=== PATIENT | female | born 1975 | race Caucasian/White ===

== ENCOUNTER 2016-09-22 18:07 | Emergency (ER) | payer SELFPAY ==
[~2016-09-22] VITALS: Ht 167.6 cm; Wt 68.0 kg
[~2016-09-22 18:07] MED LIST: CLIN150 PO; GABA300C3 PO; HYDR-3533 PO; OXYC5 PO; TIZA4 PO
[2016-09-22 18:10] VITALS: BP 149/89; PULSE 80; RESP 14; TEMP 98.2; O2SAT 100
[2016-09-22] MEDS ORDERED: SODIUM CHLOR 0.9% 1000 ML INJ 1,000 ML IV ONE (23:15)
[2016-09-22 23:48] LABS: AUTOMATED NEUTROPHIL # 3.7 TH/MM3 (1.8-7.7); BASOPHIL # 0.1 TH/MM3 (0-0.2); BASOPHIL % 0.8 % (0.0-2.0); EOSINOPHIL # 0.2 TH/MM3 (0-0.4); EOSINOPHIL % 3.3 % (0.0-4.0); HEMATOCRIT 43.1 % (35.0-46.0); HEMO FLAGS DIFF FINAL; LYMPH % 35.8 % (9.0-44.0); LYMPHOCYTE # 2.5 TH/MM3 (1.0-4.8); MEAN CELL VOLUME 90.4 FL (80.0-100.0); MEAN CORPUSCULAR HEMOGLOBIN 31.2 PG (27.0-34.0); MEAN CORPUSCULAR HGB CONC 34.5 % (32.0-36.0); MONO % 7.2 % (0.0-8.0); NEUT % 52.9 % (16.0-70.0); PLATELET COUNT 196 TH/MM3 (150-450); RED BLOOD COUNT 4.77 MIL/MM3 (4.00-5.30); RED CELL DISTRIBUTION WIDTH 12.9 % (11.6-17.2); WHITE BLOOD COUNT 7.1 TH/MM3 (4.0-11.0)
[2016-09-23] MEDS ORDERED: ONDANSETRON HCL 4 MG/2 ML VIAL IV PUSH ONE
[2016-09-23] MEDS ORDERED: SODIUM CHLOR 0.9% 1000 ML INJ 1,000 ML IV ONE
--- NOTE | 2016-09-23 | PD ---
HPI Chief Complaint: Postal Service Clerk Problem/Complaint Time Seen by Provider: 23:10 Travel History International Travel<30 days: No Contact w/Intl Traveler<30days: No Traveled to known affect area: No History of Present Illness HPI The patient is 40 year old female who presents to the [facility] emergency department with a history of pelvic pain in the left lower quadrant of the abdomen that she reports began 4 days ago and has been associated with vaginal bleeding. She reports that the vaginal bleeding began after her usual menstrual cycle ended 3 days prior. The patient reports that she does have a history of irregular menstrual cycles. She also reports having a history of a right ovarian cyst status post resection and endometriosis. She reports that she's had chronic pelvic pain followed by Dr. Saha. She reports that she has not done well in the past on Depo-Provera or oral contraceptives. The patient denies having any fevers or chills. She reports that last night she began to have nausea and vomiting with the pain. She reports that she has not been able to keep anything down today. She denies having any diarrhea. She denies having any new sexual partners or any concerns about sexually transmitted infections. She denies having any other vaginal discharge. The patient denies having any recent fevers, cough, congestion, neck pain, chest pain, shortness of breath, diarrhea, urinary symptoms, or neurologic symptoms. LMP: A week ago PFS Past Medical History Narrative Medical The patient's past medical history is significant for ovarian cyst, endometriosis, anxiety disorder Diminished Hearing: No Reproductive: Yes (ENDOMETRIOSIS) ?: Not : 0 Ovarian Cysts: Yes Past Surgical History Narrative Surgical The patient's past surgical history is significant for 3 prior laparoscopies, right ovarian cyst resection, benign lump removal from the right breast. Gynecologic Surgery: Yes (RIGHT OVARY REMOVED, RIGHT BREAST BENIGN LUMPECTOMY) Social History Alcohol Use: No Tobacco Use: Yes (2 PPD) Substance Use: No Allergies-Medications (Allergen,Severity, Reaction): Coded Allergies: Penicillin (Verified Allergy, Unknown, SWELLING, 09/22/16) Ibuprofen (Verified Adverse Reaction, Unknown, RASH, 09/22/16) Reported Meds & Prescriptions Reported Meds & Active Scripts Active Tramadol (Tramadol HCl) 50 Mg Tab 50 Mg PO Q8H PRN Zofran Odt (Ondansetron Odt) 4 Mg Tab 4 Mg SL Q6HR PRN Lortab 5 mg/325 mg (Hydrocodone/Acetaminophen 5 mg/325 mg) 1 Tab 1 Tab PO Q8HR PRN Cleocin (Clindamycin HCl) 150 Mg Cap 1 Tab PO QID Oxycodone (Oxycodone HCl) 5 Mg Cap 5 Mg PO Q8H PRN Reported Gabapentin 300 Mg Cap 300 Mg PO TID Zanaflex 4 mg (Tizanidine HCl) 4 Mg Tab 1 Tab PO HS Narrative Medication Klonopin when necessary anxiety Review of Systems Except as stated in HPI: all other systems reviewed are Neg General / Constitutional: No: Fever Eyes: No: Visual changes HENT: No: Headaches Cardiovascular: No: Chest Pain or Discomfort Respiratory: No: Shortness of Breath Gastrointestinal: Positive: Nausea, Vomiting, Abdominal Pain, No: Constipation , Changes in Bowel Habits, Indigestion, Loss of Appetite Genitourinary: No: Dysuria Musculoskeletal: No: Pain Skin: No Rash Neurologic: No: Weakness Psychiatric: No: Depression Endocrine: No: Polydipsia Hematologic/Lymphatic: No: Easy Bruising Physical Exam Narrative General: The patient is a well-developed well-nourished female in no acute distress. Head and Neck exam: Head is normocephalic atraumatic. Eyes: Pupils are equal round and reactive to light. Nose: Midline septum with pink mucous membranes Mouth: Dentition unremarkable. Moist mucus membranes. Posterior oropharynx is not erythematous. No tonsillar hypertrophy. Uvula midline. Airway patent. Neck: No palpable lymphadenopathy. No nuchal rigidity. No thyromegaly. Cardiovascular: Regular rate and rhythm without murmurs, gallops, or rubs. Lungs: Clear to auscultation bilaterally. No wheezes, rhonchi, or rales. Abdomen: Soft, with reported discomfort on palpation in the left lower quadrant of the abdomen and pelvis, no other tenderness on palpation of the other 3 quadrants of the abdomen. No guarding, rebound, or rigidity. Negative [place] sign. No tenderness on palpation of McBurney's point. Normal bowel sounds are audible. Extremities: No clubbing, cyanosis, or edema. 2+ pulses in all 4 extremities. Back: No spinous process tenderness to palpation. No costovertebral angle tenderness to palpation. Neurologic Exam: Grossly nonfocal. Skin Exam: No rash noted. Intact skin that is warm and dry. Gynecologic exam: The patient was placed in the dorsal lithotomy position. Her external genitalia were examined. She had no evidence of rash or lesions. The speculum was placed into her vagina and the cervix was identified. She has a mild amount of blood coming from the cervical os into the posterior vaginal vault. No other discharge noted. No cervical friability. On Bimanual exam: she has no cervical motion tenderness. No adnexal tenderness or prominence noted on palpation. No uterine tenderness or enlargement noted on palpation. Data Data Last Documented VS Vital Signs Date Time Temp Pulse Resp B/P Pulse Ox O2 Delivery O2 Flow Rate FiO2 09/22/16 18:10 98.2 80 14 149/89 100 Room Air Orders Complete Blood Count With Diff (09/22/16 23:13) Comprehensive Metabolic Panel (09/22/16 23:13) Gc And Chlamydia Pcr (09/22/16 23:13) Wet Prep Profile (09/22/16 23:13) Urinalysis - C+S If Indicated (09/22/16 23:13) Iv Access Insert/Monitor (09/22/16 23:13) Ecg Monitoring (09/22/16 23:13) Ed Urine Pregnancytest Poc (09/22/16 23:13) Sodium Chlor 0.9% 1000 Ml Inj (Ns 1000 M (09/22/16 23:15) Sodium Chlor 0.9% 1000 Ml Inj (Ns 1000 M (09/23/16 00:00) Morphine Inj (Morphine Inj) (09/23/16 00:00) Ondansetron Inj (Zofran Inj) (09/23/16 00:00) Us Pelvis Comp W Dop Transvag (09/22/16 23:53) Ondansetron Inj (Zofran Inj) (09/23/16 01:45) Morphine Inj (Morphine Inj) (09/23/16 01:45) Labs Laboratory Tests Test 09/22/16 09/22/16 09/23/16 01:15 23:40 01:05 Clue Cells (Wet Prep) NONE SEEN Vaginal Trichomonas (Wet Prep) NONE SEEN Vaginal Yeast (Wet Prep) NONE SEEN White Blood Count 7.1 TH/MM3 Red Blood Count 4.77 MIL/MM3 Hemoglobin 14.9 GM/DL Hematocrit 43.1 % Mean Corpuscular Volume 90.4 FL Mean Corpuscular Hemoglobin 31.2 PG Mean Corpuscular Hemoglobin 34.5 % Concent Red Cell Distribution Width 12.9 % Platelet Count 196 TH/MM3 Mean Platelet Volume 7.9 FL Neutrophils (%) (Auto) 52.9 % Lymphocytes (%) (Auto) 35.8 % Monocytes (%) (Auto) 7.2 % Eosinophils (%) (Auto) 3.3 % Basophils (%) (Auto) 0.8 % Neutrophils # (Auto) 3.7 TH/MM3 Lymphocytes # (Auto) 2.5 TH/MM3 Monocytes # (Auto) 0.5 TH/MM3 Eosinophils # (Auto) 0.2 TH/MM3 Basophils # (Auto) 0.1 TH/MM3 CBC Comment DIFF FINAL Differential Comment Sodium Level 139 MEQ/L Potassium Level 4.0 MEQ/L Chloride Level 107 MEQ/L Carbon Dioxide Level 25.1 MEQ/L Anion Gap 7 MEQ/L Blood Urea Nitrogen 8 MG/DL Creatinine 0.74 MG/DL Estimat Glomerular Filtration 87 ML/MIN Rate Random Glucose 85 MG/DL Calcium Level 8.8 MG/DL Total Bilirubin 0.7 MG/DL Aspartate Amino Transf 127 U/L (AST/SGOT) Alanine Aminotransferase 231 U/L (ALT/SGPT) Alkaline Phosphatase 57 U/L Total Protein 6.8 GM/DL Albumin 3.7 GM/DL Urine Color YELLOW Urine Turbidity CLEAR Urine pH 6.5 Urine Specific [place] 1.014 Urine Protein NEG mg/dL Urine Glucose (UA) NEG mg/dL Urine Ketones TRACE mg/dL Urine Occult Blood TRACE Urine Nitrite NEG Urine Bilirubin NEG Urine Urobilinogen LESS THAN 2.0 MG/DL Urine Leukocyte Esterase NEG Urine RBC 1 /hpf Urine WBC LESS THAN 1 /hpf Urine Squamous Epithelial 2 /hpf Cells Urine Mucus FEW /lpf Microscopic Urinalysis Comment CULT NOT INDICATED MDM Medical Decision Making Medical Screen Exam Complete: Yes Emergency Medical Condition: Yes Medical Record Reviewed: Yes Interpretation(s) Last Impressions Abdomen/Pelvis/Transvag US 09/22/16 9227 Signed Impressions: Service Date/Time: Friday, September 23, 2016 00:37 - CONCLUSION: 1. Right oophorectomy. 2. Left ovary unremarkable. José Luis Santos MD Differential Diagnosis Miscarriage, versus ectopic , versus dysmenorrhea, versus pelvic pain related to endometriosis, versus ovarian cyst Narrative Course During the course of the patients emergency department visit, the patients history, examination, and differential diagnosis were reviewed with the patient. The patient had IV access obtained and blood work sent for analysis. An ultrasound of the pelvis has been ordered. The patient was provided morphine for pain, Zofran for nausea, normal saline 1 L IV fluid bolus was started. The patients laboratory studies were reviewed and remarkable for a CBC that is within normal limits. CMP is remarkable for a GFR of 87, AST 127, ALT 231, The patient denies any known prior history of elevated liver enzymes. She is given a copy of her labs. The patient is instructed regarding the importance of following up with a primary care physician for additional testing including viral hepatitis testing and repeat LFTs in the next week. Radiology studies were reviewed and remarkable for an ultrasound that showed a right oophorectomy, left ovary has good blood flow, no acute abnormality. The patient is resting comfortably and feels better, is alert and in no distress. The patients results and examination findings were discussed with the patient. The repeat examination is unremarkable and benign. The history, exam, diagnostic testing, and current condition do not suggest any significant pathology to warrant further testing, continued ED treatment, admission, or surgical evaluation at this point. The vital signs have been stable. The patient does not have uncontrollable pain, intractable vomiting, or other significant symptoms. The patient's condition is stable and appropriate for discharge. The patient will pursue further outpatient evaluation with a primary care physician or other designated or consulting physician as indicated in the discharge instructions. The patient expressed understanding and was agreeable with this plan. Diagnosis Primary Impression: Pelvic pain Additional Impressions: Vomiting Qualified Code: R11.2 - Non-intractable vomiting with nausea, unspecified vomiting type Dysfunctional uterine bleeding Elevated liver enzymes Referrals: Perlita West MD 1 week Surface Mount Technology Operator 1 day Patient Instructions: Acute Nausea and Vomiting (ED), Dysfunctional Uterine Bleeding (ED), General Instructions, Pelvic Pain in Women (ED) Additional Instructions: The patient is given outpatient lab slip to have repeat liver function tests and viral hepatitis testing done in one week as an outpatient. She is given the name of the outpatient referral doctor, Perlita West that is underground conduit installer for follow-up. Regarding her gynecologic issues, she is instructed to follow-up with her BOAT LABORER, Dr. Saha. Med/Other Pt SpecificInfo: Prescription(s) given Scripts Tramadol 50 Mg Tab50 Mg PO Q8H PRN (PAIN) #9 TAB Ref 0 Prov:Stephanie Najera MD 09/23/16 Ondansetron Odt (Zofran Odt)4 Mg Tab4 Mg SL Q6HR PRN (Nausea/Vomiting) #7 TAB Ref 0 Prov:Stephanie Najera MD 09/23/16 Disposition: 01 DISCHARGE HOME Condition: Stable Stephanie Najera MD Sep 23, 2016 00:00
[2016-09-23 00:11] LABS: ALKALINE PHOSPHATASE 57 U/L (45-117); TOTAL BILIRUBIN ADULT 0.7 MG/DL (0.2-1.0)
[2016-09-23 00:25] LABS: ALT (GPT) 231 U/L (10-53); ANION GAP 7 MEQ/L (5-15); AST (GOT) 127 U/L (15-37); BICARBONATE 25.1 MEQ/L (21.0-32.0); BLOOD UREA NITROGEN 8 MG/DL (7-18); CHLORIDE 107 MEQ/L (98-107); GLOMERULAR FILTRATION RATE 87 ML/MIN (>89); SODIUM (NA) 139 MEQ/L (136-145)
[2016-09-23] MEDS ORDERED: HYDR-3533 PO (01:23)
[2016-09-23] MEDS ORDERED: ZOFR4TAB3 SL (01:23)
[2016-09-23] MEDS ORDERED: TRAM50TA PO (01:25)
[2016-09-23 01:33] LABS: BLOOD, URINE TRACE (NEG); COMMENT (UR) CULT NOT INDICATED; CULTURE IF INDICATED CULT NOT INDICATED; GLUCOSE,URINE NEG (NEG); KETONE, URINE TRACE mg/dL (NEG); MUCUS URINE FEW /lpf (OCC); NITRITE,URINE NEG (NEG); PH, URINE 6.5 (5.0-8.5); SQUAMOUS EPITHELIAL CELL URINE 2 /hpf (0-5); URINE COLOR YELLOW (YELLW/STRAW)
[2016-09-23] MEDS ORDERED: ONDANSETRON HCL 4 MG/2 ML VIAL IV ONE (01:45)
[2016-09-23] MEDS ORDERED: MORPHINE SULFATE 4 MG/ML INJ IV PUSH ONE ×2 (01:45)
--- NOTE | 2016-09-23 02:05 | RADRPT ---
EXAM DATE/TIME: 09/23/2016 00:37 [facility] COMPARISON: No previous studies available for comparison. INDICATIONS : Pelvic pain. MEDICAL HISTORY : Endometriosis. Ovarian cysts. SURGICAL HISTORY : Right oophorectomy. Right breast benign lumpectomy. ENCOUNTER: Initial ACUITY: 2 days PAIN SCORE: 7/10 LOCATION: Bilateral pelvis MEASUREMENTS: UTERUS: 7.4 x 4.4 x 3.8 cm ENDOMETRIAL STRIPE: 4 mm RIGHT OVARY: S/P Oopherectomy LEFT OVARY: 3.3 x 2.2 x 1.9 cm FINDINGS: UTERUS: The myometrium has homogeneous echotexture without mass. RIGHT OVARY: Surgically absent. LEFT OVARY: Ovary contains no mass or significant cystic lesion. Normal flow. MISCELLANEOUS: No free fluid. CONCLUSION: 1. Right oophorectomy. 2. Left ovary unremarkable. José Luis Santos MD on September 23, 2016 at 2:03 Board Certified Radiologist. This report was verified electronically.
[2016-09-23 03:36] LABS: CHLAMYDIA PCR NOT DETECTED (NOT DETECT); NEISSERIA PCR NOT DETECTED (NOT DETECT)
== END 2016-09-23 02:56 | disposition home or self-care (01) ==
LOC: NEPC 18:07
DX: R10.2 Pelvic and perineal pain (principal); R11.2 Nausea with vomiting, unspecified; N93.8 Other specified abnormal uterine and vaginal bleeding; R74.8 Abnormal levels of other serum enzymes; N80.9 Endometriosis, unspecified; F17.200 Nicotine dependence, unspecified, uncomplicated; Z87.42 Personal history of other diseases of the female genital tract
CPT/HCPCS: 76830; 76856; 80053; 81001; 84703; 85025; 87210; 87491; 87591; 93975; 96374; 96375; 96376; 99284; J2270; J2405; J7030